=== PATIENT | male | born 1975 | race Caucasian/White ===

== ENCOUNTER 2019-01-10 10:16 | Emergency (ER) | payer BC, OTHER ==
--- NOTE | 2019-01-10 11:16 | EDM.PDOC ---
ED HPI GENERAL MEDICAL PROBLEM - General Chief Complaint: Chest Pain Stated Complaint: SHORTNESS OF BREATH, CHEST PAIN Time Seen by Provider: 01/10/19 10:35 Source of Information: Reports: Patient History Limitations: Reports: No Limitations - History of Present Illness INITIAL COMMENTS - FREE TEXT/NARRATIVE: 43-year-old male arrives with 3 days of intermittent chest tightness and slight dyspnea while lying down, especially in the evening. His symptoms were worse on Thursday evening and again last night, 2 days apart. When he is up during the day and activity has no symptoms or problems. The sensation is a "squeeze", with no radiation of pain, no nausea or vomiting or diaphoresis. He noticed the symptoms at midnight last night after going to bed so got up and sat up for 2 hours, then went back to bed. He drank some water which had no effect, he did not take any antacid or any other medication. Denies cough or fever. He quit smoking 2 months ago. Onset: Other (First episode was 3 days ago in the evening) Duration: Hour(s): (Lasts 1-3 hours) Location: Reports: Chest Severity: Mild Improves with: Reports: Other (Seems to be better when upright and active) Associated Symptoms: Reports: Shortness of Breath. Denies: Confusion, Cough, Fever/Chills, Loss of Appetite, Nausea/Vomiting, Syncope, Weakness Mid-Sternal Pain Score (Numeric/FACES): 2 - Related Data Allergies Allergy/AdvReac Type Severity Reaction Status Date / Time morphine Allergy Hives Verified 01/10/19 10:22 Home Meds: Home Meds NK [No Known Home Meds] 01/10/19 [History] Past Medical History HEENT History: Reports: Impaired Vision - Infectious Disease History Infectious Disease History: Reports: Chicken Pox - Past Surgical History GI Surgical History: Reports: Hernia Repair/Other Musculoskeletal Surgical History: Reports: Other (See Below) Other Musculoskeletal Surgeries/Procedures:: wrist surgery Social & Family History - Tobacco Use Smoking Status *Q: Former Smoker Used Tobacco, but Quit: Yes Month/Year Tobacco Last Used: - Caffeine Use Caffeine Use: Reports: Coffee - Recreational Drug Use Recreational Drug Use: No ED ROS GENERAL - Review of Systems Review Of Systems: See Below Constitutional: Denies: Fever, Chills HEENT: Reports: No Symptoms Respiratory: Reports: Shortness of Breath. Denies: Pleuritic Chest Pain, Cough Cardiovascular: Reports: Chest Pain (Tightness as mentioned in history of present illness). Denies: Dyspnea on Exertion, Lightheadedness, Palpitations, Syncope GI/Abdominal: Reports: No Symptoms : Reports: No Symptoms Musculoskeletal: Reports: No Symptoms Skin: Reports: No Symptoms Neurological: Reports: No Symptoms ED EXAM, GENERAL - Physical Exam Exam: See Below Exam Limited By: No Limitations General Appearance: Alert, No Apparent Distress Eye Exam: Bilateral Eye: Normal Inspection Head: Atraumatic Respiratory/Chest: No Respiratory Distress, Lungs Clear Cardiovascular: Regular Rate, Rhythm, No Murmur. No: Tachycardia, Extra Beats GI/Abdominal: Soft, Non-Tender Extremities: Normal Inspection. No: Pedal Edema Neurological: Alert, Oriented, No Motor/Sensory Deficits Psychiatric: Normal Affect, Normal Mood Skin Exam: Warm EKG INTERPRETATION Rhythm: NSR Course - Vital Signs Last Recorded V/S: Last Vital Signs Temp 95.6 F 01/10/19 10:24 Pulse 66 01/10/19 10:24 Resp 16 01/10/19 10:24 BP 139/75 01/10/19 10:24 Pulse Ox 97 01/10/19 10:24 - Orders/Labs/Meds Orders: Active Orders 24 hr Category Date Time Status EKG Documentation Completion [RC] ASDIRECTED Care 01/10/19 10:44 Active EKG 12 Lead [EK] Routine Ther 01/10/19 10:44 Ordered Labs: Laboratory Tests 01/10/19 01/10/19 Range/Units 10:52 10:52 WBC 5.7 (4.5-11.0) K/uL RBC 4.52 (4.30-5.90) M/uL Hgb 14.7 (12.0-15.0) g/dL Hct 42.2 (40.0-54.0) % MCV 93 (80-98) fL MCH 33 H (27-31) pg MCHC 35 (32-36) % Plt Count 187 (150-400) K/uL Neut % (Auto) 58 (36-66) % Lymph % (Auto) 29 (24-44) % Steele % (Auto) 11 H (2-6) % Eos % (Auto) 2 (2-4) % Baso % (Auto) 0 (0-1) % Sodium 141 (140-148) mmol/L Potassium 3.7 (3.6-5.2) mmol/L Chloride 105 (100-108) mmol/L Carbon Dioxide 26 (21-32) mmol/L Anion Gap 9.6 (5.0-14.0) mmol/L BUN 21 H (7-18) mg/dL Creatinine 1.0 (0.8-1.3) mg/dL Est Cr Clr Drug Dosing 92.15 mL/min Estimated GFR (MDRD) > 60 (>60) Glucose 87 (74-106) mg/dL Calcium 9.0 (8.5-10.1) mg/dL Total Bilirubin 0.4 (0.2-1.0) mg/dL AST 24 (15-37) U/L ALT 32 (12-78) U/L Alkaline Phosphatase 86 (46-116) U/L Troponin I < 0.017 (0.000-0.056) ng/mL Total Protein 6.7 (6.4-8.2) g/dL Albumin 3.5 (3.4-5.0) g/dL Globulin 3.2 (2.3-3.5) g/dL Albumin/Globulin Ratio 1.1 L (1.2-2.2) - Re-Assessments/Exams Free Text/Narrative Re-Assessment/Exam: 01/10/19 11:15 An EKG was done which showed no acute findings. Basically normal. Discussed with the patient that this sounds noncardiac, possibly more typical of a nighttime indigestion or reflux issue. CBC, CMP, troponin were obtained and if those are reassuring we will consider a trial of omeprazole. Patient rested quietly while in the emergency room without symptoms while awaiting results. 01/10/19 11:27 Labs are reassuring, troponin is 0. Discussed with patient and we will try 20 mg of omeprazole daily for 2 weeks and I encouraged him to schedule his physical with his primary doctor as soon as possible to discuss response to treatment and any further testing which may be indicated. He can return anytime if symptoms are worsening or he develops other concerns. Departure - Departure Time of Disposition: 11:49 Disposition: Home, Self-Care 01 Condition: Good Clinical Impression: Atypical chest pain - Discharge Information Instructions: Nonspecific Chest Pain, [id number] Referrals: PCP,None [Primary Care Provider] - Forms: ED Department Discharge Care Plan Goals: Try 20 mg of omeprazole daily for at least 2-3 consecutive weeks and schedule your recheck with Dr. Gagnon in the next few weeks as well. Return anytime if worsening or concerns, such as increased pain especially with activity. - My Orders Last 24 Hours: My Active Orders 01/10/19 10:44 EKG Documentation Completion [RC] ASDIRECTED EKG 12 Lead [EK] Routine - Assessment/Plan Last 24 Hours: My Active Orders 01/10/19 10:44 EKG Documentation Completion [RC] ASDIRECTED EKG 12 Lead [EK] Routine
== END 2019-01-10 11:49 | disposition home or self-care (01) ==
LOC: JP.ED 10:16
DX: R07.89 Other chest pain (principal); Z88.5 Allergy status to narcotic agent; Z87.891 Personal history of nicotine dependence
CPT/HCPCS: 36415; 80053; 84484; 85025; 93005; 99285-25

== ENCOUNTER 2022-08-15 07:12 | Day surgery (SDC) | payer BC ==
[2022-08-15] MEDS ORDERED: fentaNYL 100 MCG/2 ML SDV ONE (07:18)
[2022-08-15] MEDS ORDERED: Midazolam 1 MG/ML 2 ML SDV ONE (07:18)
[2022-08-15] MEDS ORDERED: Propofol 200 MG/20 ML SDV ONE (07:18)
[2022-08-15] MEDS ORDERED: Sodium Chloride 0.9% 1,000 ML IV SCH (07:30)
== END 2022-08-15 10:10 | disposition home or self-care (01) ==
LOC: JP.SDS 07:12
PROVIDERS: ATTEND Surgery
DX: K92.2 Gastrointestinal hemorrhage, unspecified (principal); K64.8 Other hemorrhoids; K21.9 Gastro-esophageal reflux disease without esophagitis; F41.9 Anxiety disorder, unspecified; F32.A Depression, unspecified; Z79.899 Other long term (current) drug therapy; Z88.6 Allergy status to analgesic agent
CPT/HCPCS: J2250; J2704; J3010; J7030